=== PATIENT | female | born 2000 | race American Indian/Alaskan Native ===

== ENCOUNTER 2021-02-04 14:05 | Outpatient (CLI) | payer OTHER ==
[2021-02-04] MEDS ORDERED: ASPIRIN81 MG PO (14:20)
[2021-02-04] MEDS ORDERED: PRENATAL CAPLE1 EAC1 PO (14:20)
== END 2021-02-04 23:41 | disposition home or self-care (01) ==
LOC: OBS/DEL 14:05
PROVIDERS: ATTEND Obstetrics & Gynecology
DX: O26.892 Other specified pregnancy related conditions, second trimester (principal); R10.2 Pelvic and perineal pain; Z3A.26 26 weeks gestation of pregnancy; Z3A.36 36 weeks gestation of pregnancy

== ENCOUNTER 2021-05-07 08:45 | Inpatient (IN) | payer OTHER ==
[~2021-05-07] VITALS: Ht 162.6 cm; Wt 93.4 kg
[~2021-05-07 08:45] MED LIST: ASPIRIN81 MG PO; PRENATAL CAPLE1 EAC1 PO
== END 2021-05-11 15:43 | disposition home or self-care (01) | DRG 788 ==
LOC: OB/GYN 08:45 → O/R 05-08 09:38 → OB/GYN 05-08 09:38
PROVIDERS: ADMIT Obstetrics & Gynecology; ATTEND Obstetrics & Gynecology
PROC: 4A1HXFZ Monitoring of Products of Conception, Cardiac Rhythm, External Approach (ICD-10-PCS; 2021-05-08)
PROC: 10D00Z1 Extraction of Products of Conception, Low, Open Approach (ICD-10-PCS; principal; 2021-05-08 12:15)
DX: O34.211 Maternal care for low transverse scar from previous cesarean delivery (principal); Z37.0 Single live birth; Z3A.39 39 weeks gestation of pregnancy